=== PATIENT | female | born 1985 | race African-American/Black ===

== ENCOUNTER 2018-06-17 01:30 | Emergency (ER) | payer SELFPAY ==
[2018-06-17 02:08] LABS: #Basophils 0.1 thou/uL (0.0-0.2); #Eosinphils 0.2 thou/uL (0.0-0.7); #Lymphocytes 3.1 thou/uL (1.20-3.40); #Monocytes 0.4 thou/uL (0.11-0.59); #Neutrophils 2.8 thou/uL (1.40-6.50); %Basophils 1.1 % (0.0-1.0); %Eosinophils 2.7 % (0.0-10.0); %Lymphocytes 47.7 % (21.0-51.0); %Monocytes 5.5 % (0.0-10.0); Hemoglobin 14.8 g/dL (12.0-16.0); Mean Corpuscular Hemoglobin 26.8 pg (27.0-31.0); Mean Platelet Volume 7.5 fL (7.4-10.4); Platelet Count 301 thou/uL (130-400); RBC Distribution Width 11.8 % (11.5-14.5); Red Blood Cell (RBC) Count 5.54 mill/uL (4.20-5.40); White Blood Cell (WBC) Count 6.5 thou/uL (4.8-10.8)
[2018-06-17 02:30] LABS: ALT (SGPT) 19 U/L (8-55); AST (SGOT) 18 U/L (5-34); Albumin 4.1 g/dL (3.5-5.0); Alkaline Phosphatase 81 U/L (40-150); Anion Gap 13 mmol/L (10-20); BUN (Urea Nitrogen) 13 mg/dL (7.0-18.7); Bilirubin, Total Less than 0.2 mg/dL (0.2-1.2); Calc. Creatinine Clearance 0 mL/min (70-130); Calcium 9.1 mg/dL (7.8-10.44); Carbon Dioxide 22 mmol/L (22-29); Chloride 107 mmol/L (98-107); Estimated GFR-MDRD 54; Glucose 111 mg/dL (70-105); Potassium 3.7 mmol/L (3.5-5.1); Protein, Total 7.1 g/dL (6.0-8.3); Sodium 138 mmol/L (136-145)
== END 2018-06-17 04:21 | disposition home or self-care (01) ==
LOC: ERS 01:30
DX: K92.1 Melena (principal); Z87.891 Personal history of nicotine dependence
CPT/HCPCS: 36415; 80053; 82274; 85025; 99284

== ENCOUNTER 2019-08-21 09:29 | Emergency (ER) | payer OTHER, SELFPAY | END 2019-08-21 10:19 | disposition home or self-care (01) | LOC: ERS 09:29 | DX: H92.01 Otalgia, right ear (principal) | CPT/HCPCS: 99281 ==

== ENCOUNTER 2019-10-02 16:38 | Emergency (ER) | payer SELFPAY | END 2019-10-02 19:56 | disposition left against medical advice (07) | LOC: ERS 16:38 | DX: Z53.21 Procedure and treatment not carried out due to patient leaving prior to being seen by health care provider (principal) ==